=== PATIENT | female | born 1970 | race Caucasian/White ===

== ENCOUNTER 2017-09-23 16:05 | Emergency (ER) | payer MEDICARE, OTHER ==
[2014-05-14 05:52] VITALS: BMI 28.0
[~2017-09-23 16:05] MED LIST: BUPROPION XL300 MG PO; FLUVOXAMINE MA100 M1 PO; KLONOPIN1 MG PO; LEVAQUIN500 MG PO; LITHIUM CARBON300 MG PO; LYRICA75 MG; NEURONTIN 300300 MG; NICODERM C1 PATCH .3 TD; OXYCONTIN30 MG; SYNTHROID150 MCG PO
== END 2017-09-23 18:34 | disposition left against medical advice (07) ==
LOC: D.ER 16:05
DX: R20.2 Paresthesia of skin (principal)